=== PATIENT | female | born 1960 | race African-American/Black ===

== ENCOUNTER 2022-02-17 00:09 | Emergency (ER) | payer MEDICAID ==
[~2022-02-17] VITALS: Ht 167.6 cm; Wt 151.0 kg
[2022-02-17] MEDS ORDERED: ONDANSETRON 4MG ODT PO ONE (01:15)
[2022-02-17] MEDS ORDERED: ONDANSETRON HCL 4MG/2ML INJ IV ONE (02:00)
[2022-02-17 02:09] LABS: BASOPHILS % 0.9 % (0.0-2.0); EOSINOPHILS % 0.8 % (0.0-5.0); HEMATOCRIT. 46.1 % (36.0-48.0); HEMOGLOBIN. 15.7 g/dL (12.0-16.0); LYMPHOCYTES % 17.5 % (20.0-50.0); MEAN CORPUSCULAR HEMOGLOBIN 32.5 pg (28.0-32.0); MEAN CORPUSCULAR VOLUME 95.3 fL (81.0-99.0); MEAN PLATELET VOLUME 9.9 fl (7.4-10.4); MONOCYTES % 6.8 % (2.0-8.0); PLATELET 170 x1000/uL (130-400); RED BLOOD CELL COUNT 4.84 mill/uL (4.2-5.4); RED CELL DISTRIBUTION WIDTH 14.1 % (11.6-14.6)
[2022-02-17 02:14] LABS: CHLORIDE 96 mEq/L (98-107)
[2022-02-17 04:31] LABS: CLARITY URINE CLEAR (CLEAR); COLOR URINE YELLOW (YELLOW); KETONES URINE NEGATIVE (NEGATIVE); LEUKOCYTE ESTERASE URINE NEGATIVE (NEGATIVE); NITRITE URINE POSITIVE (NEGATIVE); OCCULT BLOOD URINE TRACE (NEGATIVE); PROTEIN URINE NEGATIVE (NEGATIVE); SPECIFIC GRAVITY URINE 1.009 (1.005-1.030)
[2022-02-17] MEDS ORDERED: CEFTRIAXONE 1 G PREMIX 50 ML IV ONE (05:00)
[2022-02-17] MEDS ORDERED: CEPH500C2 MT (05:38)
[2022-02-17 06:00] VITALS: BP 124/70
== END 2022-02-17 06:00 | disposition home or self-care (01) ==
LOC: ER 00:21
DX: N10 Acute pyelonephritis (principal); Z20.822 Contact with and (suspected) exposure to COVID-19; R51.9 Headache, unspecified; R11.2 Nausea with vomiting, unspecified; R09.81 Nasal congestion; J44.9 Chronic obstructive pulmonary disease, unspecified; I10 Essential (primary) hypertension; E11.9 Type 2 diabetes mellitus without complications; I48.91 Unspecified atrial fibrillation
CPT/HCPCS: 36415; 80053; 81003; 85025; 87426; 96365; 96375; 99284; J0696; J2405; Q0162

== ENCOUNTER 2023-04-12 15:04 | Emergency (ER) | payer MEDICAID, OTHER ==
[~2023-04-12] VITALS: Ht 175.3 cm; Wt 181.0 kg
[~2023-04-12 15:04] MED LIST: CEPH500C2 MT
[2023-04-12 15:14] VITALS: O2SAT 98
[2023-04-12 15:56] LABS: BASOPHILS % 0.6 % (0.0-2.0); EOSINOPHILS % 0.7 % (0.0-5.0); HEMATOCRIT. 46.8 % (36.0-48.0); HEMOGLOBIN. 15.4 g/dL (12.0-16.0); MEAN CORPUSCULAR HEMOGLOBIN 31.5 pg (28.0-32.0); MEAN CORPUSCULAR HGB CONC 32.9 g/dL (31.0-37.0); MONOCYTES % 5.9 % (2.0-8.0); NEUTROPHILS % 73.8 % (40.0-76.0); PLATELET 178 x1000/uL (130-400); RED BLOOD CELL COUNT 4.88 mill/uL (4.2-5.4); RED CELL DISTRIBUTION WIDTH 14.5 % (11.6-14.6); WHITE BLOOD COUNT 12.7 x1000/uL (4.5-11.0)
[2023-04-12 16:04] LABS: CHLORIDE 105 mEq/L (98-107); INDEX HEMOLYSI 1 (1-3); INDEX ICTERIC 1 (1-4); INDEX LIPEMIC 1 (1-3); POTASSIUM 3.6 mEq/L (3.5-5.1); SODIUM 138 mEq/L (136-145)
[2023-04-12] MEDS ORDERED: FUROSEMIDE 40MG/4ML VIAL IV ONE (16:15)
[2023-04-12] MEDS ORDERED: ASPIRIN 81MG TABLET PO ONE (16:15)
[2023-04-12 16:20] LABS: ALANINE AMINOTRANSFERASE 31 IU/L (13-61); ALBUMIN 3.1 g/dL (3.4-5.0); ASPARTATE AMINOTRANSFERASE 18 IU/L (15-37); CALCIUM 9.1 mg/dL (8.5-10.1); CARBON DIOXIDE 26 mEq/L (21-32); CREATININE 0.8 mg/dL (0.6-1.3); GLUCOSE 176 mg/dL (70-105); NT PRO B-TYPE NATRIURETIC PEP 515 pg/mL (5-125); PROTEIN TOTAL 7.7 g/dL (6.0-8.3); TROPONIN I HIGH SENSITIVITY 15 ng/L (<54); UREA NITROGEN BLOOD 16 mg/dL (7-21)
[2023-04-12 17:04] LABS: BILIRUBIN TOTAL 0.5 mg/dL (0.1-1.0)
[2023-04-12] MEDS ORDERED: FUROSEMIDE 40MG/4ML VIAL IV NR (18:45)
[2023-04-12] MEDS ORDERED: ASPIRIN 81MG TABLET PO NR (18:45)
[2023-04-12 18:48] VITALS: BP 168/95; PULSE 86; RESP 18; TEMP 98.4
== END 2023-04-12 19:00 | disposition left against medical advice (07) ==
LOC: ER 16:49
DX: I11.0 Hypertensive heart disease with heart failure (principal); I50.9 Heart failure, unspecified; E11.9 Type 2 diabetes mellitus without complications
CPT/HCPCS: 80053; 83880; 85025; 84484; 36415; 71045; 93005; 96374; 99291; Z7610 ×2; J1940